=== PATIENT | male | born 1990 | race Caucasian/White ===

== ENCOUNTER → 2018-03-18 | Outpatient (REF) | payer OTHER ==
[~2018-03-18] MED LIST: CETI-169 PO; EPIN0.3P3 IM; FLU10 PO; LAM100 PO; LOR5 PO; PRED-1 PO; [UNRECOGNIZED DRUG - CODE] PO
== END ==
LOC: ZZSENDIN 17:37
PROVIDERS: ATTEND Family Medicine
DX: D22.9 Melanocytic nevi, unspecified (principal)
CPT/HCPCS: 88305; 88344